=== PATIENT | male | born 1955 | race Caucasian/White ===

== ENCOUNTER → 2020-08-20 | Outpatient (CLI) | payer MEDICARE, MEDICAID ==
[~2020-08-20] MED LIST: MUCINEX 60600 MG/TA1 PO; PROAIR HFA0.09 MG/AC IH; TRELEGY ELLIPT1 EACH IH; VTAMINC250TA PO; daliresp; prednisone
--- NOTE | 2020-08-20 11:49 | NUR ---
PROCEDURE CANCELLED BY DR MORA.
== END ==
LOC: COL.RAD 09:00
DX: R91.8 Other nonspecific abnormal finding of lung field (principal)